=== PATIENT | female | born 1995 | race Two or more races ===

== ENCOUNTER 2019-01-30 09:24 | Emergency (ER) | payer BC ==
[~2019-01-30] VITALS: Ht 167.6 cm; Wt 61.2 kg
--- NOTE | 2019-01-30 09:42 | NUR ---
BIBSELF C/O DIZZINESS AND SOB. +NAUSEA, -CP, -ABDOMINAL PAIN. ON LAST DAY OF 7 DAY COURSE MACROBID. TO ER BED 10, HOOKED TO MONITOR, CHANGED TO GOWN, PROVIDED W WARM BLANKET, AWAITING MD MARTIN.
--- NOTE | 2019-01-30 10:03 | NUR ---
DR SAHNI AT BEDSIDE
--- NOTE | 2019-01-30 10:05 | NUR ---
URINE SAMPLE SENT TO LAB
--- NOTE | 2019-01-30 10:18 | NUR ---
PT WHEELED OUT VIA WHEELCHAIR FOR XRAY.
[2019-01-30 10:44] LABS: APPEARANCE,URINE Clear (CLEAR); BILIRUBIN,URINE SMALL (NEGATIVE); BLOOD, URINE Negative Ery/uL (NEGATIVE); KETONES,URINE Negative (NEGATIVE); LEUKOCYTE ESTERASE ,URINE Negative (NEGATIVE); NITRITE, URINE Negative (NEGATIVE); PH,URINE 5.5 (5.0-8.0); PROTEIN,URINE Negative (NEGATIVE); UGLUCOSE Negative (NEGATIVE); UROBILINOGEN,URINE 0.2 EU/dL (0.2)
[2019-01-30 10:47] LABS: COLOR,URINE AMBER (YELLOW)
[2019-01-30 10:48] LABS: BACTERIA,URINE Few /HPF (None Seen); RBC,URINE 0-2 /HPF (0-2); WBC,URINE 0-2 /HPF (0-3)
[2019-01-30 10:49] LABS: SQUAMOUS EPITHELIAL CELL,UR Few /HPF (None Seen)
--- NOTE | 2019-01-30 11:34 | NUR ---
Patient discharged to home in stable condition. Written and verbal after care instructions given. Patient verbalizes understanding of instruction.
[2019-01-30 11:36] VITALS: BP 122/74
== END 2019-01-30 11:37 | disposition home or self-care (01) ==
LOC: ER 09:24
DX: B34.9 Viral infection, unspecified (principal); F41.9 Anxiety disorder, unspecified
CPT/HCPCS: 71045-TC; 81000-TC